=== PATIENT | male | born 1950 | race Caucasian/White ===

== ENCOUNTER 2025-05-28 06:34 | Day surgery (SDC) | payer MEDICARE ==
[~2025-05-28] VITALS: Ht 177.8 cm; Wt 73.5 kg
[2025-05-28] VITALS (10 sets, daily range): BP systolic 85–114; BP diastolic 47–61; PULSE 70–87; RESP 18–20; TEMP 97.3–97.7
[2025-05-28] MEDS ORDERED: RIFA550T PO (07:08)
[2025-05-28] MEDS ORDERED: PREG75CA76 PO (07:08)
[2025-05-28] MEDS ORDERED: TAMS-55 PO (07:08)
[2025-05-28] MEDS ORDERED: FINA5TAB41 PO (07:08)
[2025-05-28] MEDS: 0.9%NACL 1000ML 1,000 ML IV ONE (07:13)
[2025-05-28] MEDS ORDERED: LIDOCAINE PF 100MG/5ML (2%) SYRINGE 5ML ONE (08:41)
== END 2025-05-28 10:30 | disposition home or self-care (01) ==
LOC: DAH 06:34 → ENDO 06:34
PROVIDERS: ATTEND Internal Medicine Gastroenterology
DX: K74.60 Unspecified cirrhosis of liver (principal); K20.90 Esophagitis, unspecified without bleeding; K76.6 Portal hypertension; K31.89 Other diseases of stomach and duodenum; K29.70 Gastritis, unspecified, without bleeding; M19.90 Unspecified osteoarthritis, unspecified site; R60.1 Generalized edema; Z96.659 Presence of unspecified artificial knee joint; Z79.899 Other long term (current) drug therapy
CPT/HCPCS: 43235; J7030; J2003; J2704; J2371; A4620; A4215 ×2; A4223; A4222; A4221; A4663; A4606; J3490